=== PATIENT | female | born 1965 | race Caucasian/White ===

== ENCOUNTER 2016-07-30 14:59 | Emergency (ER) | payer MEDICAID ==
[~2016-07-30] VITALS: Ht 157.5 cm; Wt 68.0 kg
[2016-07-30] MEDS ORDERED: KETOROLAC 60MG/2ML VIAL IM ONE (15:45)
[2016-07-30] MEDS ORDERED: LIDOCAINE HCL 1% 20ML VIAL (Pyxis) INJ INFIL ONE (17:15)
[2016-07-30] MEDS ORDERED: HYDROCODONE/ACETAMINOPHEN 5/325MG TABLET PO ONE (17:15)
[2016-07-30 17:38] VITALS: BP 121/52
== END 2016-07-30 19:15 | disposition home or self-care (01) ==
LOC: ER 15:26
DX: S93.111A Dislocation of interphalangeal joint of right great toe, initial encounter (principal); W01.0XXA Fall on same level from slipping, tripping and stumbling without subsequent striking against object, initial encounter; Y93.89 Activity, other specified; Y92.89 Other specified places as the place of occurrence of the external cause; Y99.8 Other external cause status
CPT/HCPCS: 26742; 73660; 81025; 96372; 99284; J1885; J3490; Z7610